=== PATIENT | female | born 1980 | race Caucasian/White ===

== ENCOUNTER 2018-08-11 12:47 | Emergency (ER) | payer BC ==
[2018-08-11 13:36] VITALS: BP 136/85
--- NOTE | 2018-08-11 13:52 | UC ---
UC General HPI - HPI Summary HPI Summary: 2 day hx sore throat, BARBOUR, bodyaches, fatigue and ear discomfort. pt had some flu type symptoms before this but had gotten better for about 3 days. - History of Current Complaint Chief Complaint: UCRespiratory Stated Complaint: ST,FEVER,BILATERAL EAR PAIN Time Seen by Provider: 08/11/18 13:26 Hx Obtained From: Patient Hx Last Menstrual Period: UTERINE ABLATION 4 YRS AGO . DOES NOT HAVE PERIODS Onset/Duration: Gradual Onset Timing: Constant Pain Intensity: 6 Associated Signs & Symptoms: Negative: Diarrhea, Vomiting - Allergy/Home Medications Allergies/Adverse Reactions: Allergies Allergy/AdvReac Type Severity Reaction Status Date / Time MS Procaine [From Novocain] Allergy Severe Difficulty Verified 08/11/18 13:27 Breathing MS Codeine [Codeine] Allergy Intermediate Rash Verified 08/11/18 13:27 Home Medications: Home Medications FLUoxetine CAP* [PROzac CAP*] 40 mg PO DAILY 08/11/18 [History Confirmed ] Ibuprofen TAB* [Advil TAB*] 400 mg PO Q6H PRN 08/11/18 [History Confirmed ] PMH/Surg Hx/FS Hx/Imm Hx Psychological History: Anxiety, Depression - Surgical History Surgical History: Yes Surgery Procedure, Year, and Place: bilat knee surgery/ACL repair. 2 vaginal deliveries. 1 , TUBAL LIGATION, OCTOBER 2013. UTERINE ABLATION - Social History Alcohol Use: None Substance Use Type: None Smoking Status (MU): Never Smoked Tobacco Review of Systems All Other Systems Reviewed And Are Negative: Yes Constitutional: Positive: Fever, Fatigue ENT: Positive: Sore Throat, Ear Ache Musculoskeletal: Positive: Myalgia Neurological: Positive: Headache Physical Exam Triage Information Reviewed: Yes Appearance: Well-Appearing Vital Signs: Initial Vital Signs Temp 98.3 F 08/11/18 13:29 Pulse 101 08/11/18 13:29 Resp 16 08/11/18 13:29 BP 136/85 08/11/18 13:29 Pulse Ox 99 08/11/18 13:29 Vital Signs Reviewed: Yes Eyes: Positive: Conjunctiva Clear ENT: Positive: Pharyngeal erythema, TMs normal, Uvula midline. Negative: Nasal congestion, Nasal drainage, Trismus, Muffled voice, Hoarse voice Neck: Positive: Supple, Enlarged Nodes @ - peritonsilar nodes that are tender. Respiratory: Positive: Lungs clear, Normal breath sounds, No respiratory distress Cardiovascular: Positive: RRR Abdomen Description: Positive: Nontender Bowel Sounds: Positive: Present Musculoskeletal: Positive: ROM Intact Neurological: Positive: Alert Psychological: Positive: Age Appropriate Behavior Skin Exam: Normal Course/Dx - Diagnoses Provider Diagnosis: Strep throat Discharge - Sign-Out/Discharge Documenting (check all that apply): Patient Departure All imaging exams completed and their final reports reviewed: No Studies - Discharge Plan Condition: Stable Disposition: HOME Prescriptions: Amoxicillin PO (*) [Amoxicillin 500 MG CAP*] 500 mg PO Q12H 10 Days #20 cap Patient Education Materials: Strep Throat (DC) Forms: *Work Release Referrals: Andree Beaver [Primary Care Provider] - Additional Instructions: follow up if not better in 5 days or sooner if worse. - Billing Disposition and Condition Condition: STABLE Disposition: Home
== END 2018-08-11 14:06 | disposition home or self-care (01) ==
LOC: UCCORT 12:47
DX: J02.0 Streptococcal pharyngitis (principal); B95.0 Streptococcus, group A, as the cause of diseases classified elsewhere; F41.8 Other specified anxiety disorders
CPT/HCPCS: 87651; 99212; G0463

== ENCOUNTER 2018-09-20 10:06 | Emergency (ER) | payer BC ==
[2018-09-20 10:33] VITALS: BP 134/80
--- NOTE | 2018-09-20 10:43 | UC ---
Throat Pain/Nasal Bobby HPI - HPI Summary HPI Summary: 38 y/o female presents to the urgent care c/o sore throat and subjective fever w / chills for the past 5 days. Pt reports pain w/ swallowing is 5/10 associated w / mild dry cough. She took ibuprofen 400mg PO last night to alleviate symptoms. Pt states she was Dx w/ Strep last months and she thinks she also has it now. Pt denies dizziness, BARBOUR, rash, SOB, chest pain, abdominal pain, N/V/D. - History of Current Complaint Chief Complaint: UCRespiratory Stated Complaint: THROAT COMPLAINT Time Seen by Provider: 09/20/18 10:39 Hx Obtained From: Patient Hx Last Menstrual Period: does not get menses d/t ablation Onset/Duration: Gradual Onset, Lasting Days - 5 days, Still Present Severity: Moderate Pain Intensity: 6 Pain Scale Used: 0-10 Numeric Cough: Nonproductive Associated Signs & Symptoms: Positive: Dysphagia, Fever - subjective fever at home - Epiglottits Risk Factors Epiglottis Risk Factors: Negative - Allergies/Home Medications Allergies/Adverse Reactions: Allergies Allergy/AdvReac Type Severity Reaction Status Date / Time procaine [From Novocain] Allergy Severe Difficulty Verified 09/20/18 10:24 Breathing codeine Allergy Intermediate Rash Verified 09/20/18 10:24 Home Medications: Home Medications Ferrous Sulfate TAB* 1 tab TID 09/20/18 [History Confirmed 09/20/18] PMH/Surg Hx/FS Hx/Imm Hx Previously Healthy: Yes - Pt denies PMHX - Surgical History Surgical History: Yes Surgery Procedure, Year, and Place: bilat knee surgery/ACL repair. 2 vaginal deliveries. 1 , TUBAL LIGATION, OCTOBER 2013. UTERINE ABLATION. LEEP - Family History Known Family History: Positive: Hypertension, Diabetes - Social History Occupation: Employed Full-time Lives: With Family Alcohol Use: None Substance Use Type: None Smoking Status (MU): Never Smoked Tobacco Review of Systems All Other Systems Reviewed And Are Negative: Yes Constitutional: Positive: Fever - subjective at home, Chills, Fatigue Skin: Positive: Negative Eyes: Positive: Negative ENT: Positive: Sore Throat Respiratory: Positive: Cough - dry cough Cardiovascular: Positive: Negative Gastrointestinal: Positive: Negative Genitourinary: Positive: Negative Motor: Positive: Negative Neurovascular: Positive: Negative Musculoskeletal: Positive: Negative Neurological: Positive: Negative Psychological: Positive: Negative Is Patient Immunocompromised?: No Physical Exam - Summary Physical Exam Summary: VITAL SIGNS: Reviewed. GENERAL: Patient is a well developed and nourished female who is sitting comfortable in the examining table. Patient is not in any acute respiratory distress. HEAD AND FACE: No signs of trauma. No ecchymosis, hematomas or skull depressions. No sinus tenderness. EYES: PERRLA, EOMI x 2, No injected conjunctiva, no nystagmus. No photophobia. EARS: Hearing grossly intact. Ear canals and tympanic membranes are within normal limits. MOUTH: Positive pharynx with erythema, exudates, palatal petechiae. B/L tonsillar enlargement with exudate. Uvula in midline. NECK: Supple, trachea is midline, Positive anterior cervical lymphadenopathy, no JVD, no carotid bruit, no c-spine tenderness, neck with full ROM. No meningeal signs, no Kernig's or brudzinskis signs. CHEST: Symmetric, no tenderness at palpation LUNGS: Clear to auscultation bilaterally. No wheezing or crackles. CVS: Regular rate and rhythm, S1 and S2 present, no murmurs or gallops appreciated. ABDOMEN: Soft, non-tender. No signs of distention. No rebound no guarding, and no masses palpated. Bowel sounds are normal. EXTREMITIES: FROM in all major joints, no edema, no cyanosis or clubbing. NEURO: Alert and oriented x 3. No acute neurological deficits. Speech is normal and follows commands. SKIN: Dry and warm Vital Signs: Initial Vital Signs Temp 97.6 F 09/20/18 10:29 Pulse 104 09/20/18 10:29 Resp 16 09/20/18 10:29 BP 134/80 09/20/18 10:29 Pulse Ox 100 09/20/18 10:29 Throat Pain/Nasal Course/Dx - Course Course Of Treatment: 38 y/o female presents to the urgent care c/o sore throat and subjective fever w / chills for the past 5 days. Pt reports pain w/ swallowing is 5/10 associated w / mild dry cough. She took ibuprofen 400mg PO last night to alleviate symptoms. Pt states she was Dx w/ Strep last months and she thinks she also has it now. Pt denies dizziness, BARBOUR, rash, SOB, chest pain, abdominal pain, N/V/D. Hx obtained. Pt w/ pharyngitis on examination. Rapid strep ordered: result: positive. Strep pharyngitis. Rx Amoxicillin PO and Ibuprofen PO for pain and swelling. PT Advised on hand washing to avoid spreading. Also advised to rest, eat well and avoid strenuous exercise. If symptoms do not improve or worsen advised to return to the urgent care or f/u with her PCP in 3 days for further evaluation and treatment. PT understood and agreed - Differential Dx/Diagnosis Differential Diagnosis/HQI/PQRI: Laryngitis, Mononucleosis, Pharyngitis, Tonsillitis, URI Provider Diagnosis: Strep pharyngitis Discharge - Sign-Out/Discharge Documenting (check all that apply): Patient Departure - D/C home All imaging exams completed and their final reports reviewed: No Studies - Discharge Plan Condition: Stable Disposition: HOME Prescriptions: Amoxicillin PO (*) [Amoxicillin 500 MG CAP*] 500 mg PO Q12H #20 cap Patient Education Materials: Strep Throat (ED) Referrals: Andree Beaver [Primary Care Provider] - 3 Days Additional Instructions: 1- Please take the full course of the antibiotic to avoid resistance. 2-Please take ibuprofen PO 600mg q6-8hrs prn as instructed after meals to alleviate pain and swelling. Increase fluid intake, eat well, rest and avoid strenuous exercise. Encourage hand washing to avoid spread 3-If symptoms do not improve or worsen please return to the urgent care or f/u with your PCP 3 days for further evaluation and treatment. - Billing Disposition and Condition Condition: STABLE Disposition: Home - Attestation Statements Provider Attestation: I was available for consult. This patient was seen by the ZARI. The patient was not presented to , seen by or examined by fl -Lynnette Khan MD
== END 2018-09-20 11:15 | disposition home or self-care (01) ==
LOC: UCCORT 10:06
DX: J02.0 Streptococcal pharyngitis (principal); B95.0 Streptococcus, group A, as the cause of diseases classified elsewhere; Z88.5 Allergy status to narcotic agent; Z88.4 Allergy status to anesthetic agent
CPT/HCPCS: 87651; 99212; G0463

== ENCOUNTER 2018-10-25 13:05 | Emergency (ER) | payer BC ==
--- NOTE | 2018-10-25 13:20 | UC ---
Complaint Female HPI - HPI Summary HPI Summary: 38-year-old female with a sore throat, some burning on urination and left earache. She has a child at home with strep pharyngitis. This patient has had strep throat 2 times in the past 3 months herself. She denies any abnormal vaginal discharge. - History Of Current Complaint Stated Complaint: FEVER,LT EAR COMPLAINT,URINARY COMPLAINT Time Seen by Provider: 10/25/18 13:08 Hx Obtained From: Patient Hx Last Menstrual Period: does not get menses d/t ablation ?: No Onset/Duration: Gradual Onset Timing: Constant Severity Initially: Mild Severity Currently: Mild Character: Burning - Mild burning on urination. Aggravating Factor(s): Urination Alleviating Factor(s): Nothing Associated Signs And Symptoms: Positive: Negative - Allergies/Home Medications Allergies/Adverse Reactions: Allergies Allergy/AdvReac Type Severity Reaction Status Date / Time procaine [From Novocain] Allergy Severe Difficulty Verified 10/25/18 13:13 Breathing codeine Allergy Intermediate Rash Verified 10/25/18 13:13 Home Medications: Home Medications QUEtiapine XR TAB* [Seroquel Xr 50 MG TAB*] 25 mg PO BEDTIME 10/25/18 [History Confirmed 10/25/18] hydrOXYzine HCL TAB* [Atarax 10 MG TAB*] 10 mg PO QID PRN 10/25/18 [History Confirmed 10/25/18] PMH/Surg Hx/FS Hx/Imm Hx Previously Healthy: Yes Respiratory History: Asthma - Surgical History Surgical History: Yes Surgery Procedure, Year, and Place: bilat knee surgery/ACL repair. 2 vaginal deliveries. 1 , TUBAL LIGATION, OCTOBER 2013. UTERINE ABLATION. LEEP - Family History Known Family History: Positive: Hypertension, Diabetes - Social History Alcohol Use: None Substance Use Type: None Smoking Status (MU): Never Smoked Tobacco Review of Systems All Other Systems Reviewed And Are Negative: Yes ENT: Positive: Sore Throat, Ear Ache Genitourinary: Positive: Dysuria - Mild burning on urination.. Negative: Vaginal/Penile Burning, Vaginal/Penile Itching, Vaginal/Penile Discharge, Vaginal/Penile Pain, Vaginal/Penile Tenderness Is Patient Immunocompromised?: No Physical Exam Triage Information Reviewed: Yes Appearance: Well-Appearing, No Pain Distress, Well-Nourished Vital Signs Reviewed: Yes Eyes: Positive: Conjunctiva Clear ENT: Positive: Pharyngeal erythema, TM red - Left tympanic membrane mildly injected but with good landmarks and light reflex, right tympanic primary pearly -terrazas with good land broussard and light reflex. Mild tonsillar swelling with erythema, no exudate., Uvula midline. Negative: Tonsillar exudate, Trismus, Muffled voice, Hoarse voice Neck: Positive: Supple, Nontender, No Lymphadenopathy Respiratory: Positive: Lungs clear, Normal breath sounds, No respiratory distress, No accessory muscle use Cardiovascular: Positive: No Murmur, Pulses Normal, Brisk Capillary Refill, Tachycardia Abdomen Description: Positive: Nontender, No Organomegaly, Soft Bowel Sounds: Positive: Present Musculoskeletal Exam: Normal Neurological Exam: Normal Psychological Exam: Normal Skin Exam: Normal Complaint Female Dx - Course Course Of Treatment: Urinalysis was negative for leukocytes did have a trace of blood, rapid strep test was positive. - Differential Dx/Diagnosis Provider Diagnosis: Strep pharyngitis Discharge - Sign-Out/Discharge Documenting (check all that apply): Patient Departure All imaging exams completed and their final reports reviewed: No Studies - Discharge Plan Condition: Fair Disposition: HOME Prescriptions: Azithromyxin KASH (NF) [Z-Kash (Zithromax) 250 mg tabs #6] 2 tab PO .TODAY, THEN 1 DAILY #6 tab Patient Education Materials: Strep Throat (DC) Referrals: Andree Beaver [Primary Care Provider] - Additional Instructions: Increase fluids, rest, Tylenol every 4 hours and Motrin every 8 hours for fever. Change her toothbrush in 24 hours. Follow-up with your primary care provider if no improvement in 3 or 4 days. - Billing Disposition and Condition Condition: FAIR Disposition: Home - Attestation Statements Provider Attestation: I was available for consult. This patient was seen by the ZARI. The patient was not presented to , seen by or examined by ma -Lynnette Khan MD
[2018-10-25 13:21] VITALS: BP 135/88
== END 2018-10-25 13:36 | disposition home or self-care (01) ==
LOC: UCCORT 13:05
DX: J02.0 Streptococcal pharyngitis (principal); B95.0 Streptococcus, group A, as the cause of diseases classified elsewhere; Z88.5 Allergy status to narcotic agent; Z20.828 Contact with and (suspected) exposure to other viral communicable diseases
CPT/HCPCS: 81003; 87651; 99212; G0463

== ENCOUNTER 2019-02-12 16:52 | Emergency (ER) | payer BC ==
--- OUTSIDE RECORDS SUMMARY | 2019-02-12 17:14 | XMS REPORT | Continuity of Care Document ---
:1980 External Reference #:[id number] Author Name Angy Daigle NP (transmitted by agent of provider Rafaela Gray) Address [address] [place] [address] Care Team Providers Name Role Phone Andree Beaver FNP - Nurse Care Team Information Investment Counselor Practitioner Problems Description No Information Available Social History Type Date Description Comments Sex Unknown Tobacco Use Start: Unknown Never Smoked Cigarettes ETOH Use Rare Use Of Alcohol Recreational Drug Use Never Used Drugs Allergies, Adverse Reactions, Alerts Active Allergies Reaction Severity Comments Date Novocain Allergic asthma Severe 01/16/2016 Codeine Hives Moderate 01/28/2019 Medications Active Medications SIG Qnty Indications Ordering Provider Date Metoprolol Succinate 1 by mouth every Unknown ER day 25mg Tablets ER 24HR Hydroxyzine HCL three times a day Unknown 25mg as needed Tablets Immunizations Description No Information Available Vital Signs Date Vital Result Comment 01/28/2019 2:26pm Weight 173.00 lb Height 64.5 inches 5'4.50" BMI (Body Mass Index) 29.2 kg/m2 BP Systolic 153 mmHg BP Diastolic 101 mmHg Heart Rate 86 /min O2 % BldC Oximetry 96 % Body Temperature 97.7 F Pain Level 0 01/16/2016 4:09pm Weight 172.25 lb Height 66 inches 5'6" BMI (Body Mass Index) 27.8 kg/m2 Heart Rate 56 /min O2 % BldC Oximetry 99 % Body Temperature 98.2 F Results Description No Information Available Procedures Description No Information Available Medical Devices Description No Information Available Encounters Description No Information Available Assessments Description No Information Available Plan of Treatment No Information Available Functional Status Description No Information Available Mental Status Description No Information Available Referrals Description No Information Available
--- OUTSIDE RECORDS SUMMARY | 2019-02-12 17:14 | XMS REPORT | Continuity of Care Document ---
:1980 External Reference #:[id number] Author Name Angy Daigle NP Address [address] [place] [address] Care Team Providers Name Role Phone Andree Beaver FNP - Nurse Care Team Information Computer Operations Supervisor Practitioner Problems Active Problems Provider Date Streptococcal sore throat Angy Daigle NP Onset: 01/28/2019 Social History Type Date Description Comments Sex [...] Medical Devices Description No Information Available Encounters Type Date Location Provider Dx Diagnosis Office Visit 01/28/2019 Main Office Angy Daigle J02.0 Streptococcal 2:15p [facility] pharyngitis Assessments Date Code Description Provider 01/28/2019 J02.0 Streptococcal pharyngitis Angy Daigle NP Plan of Treatment No Information Available Functional Status Description No Information Available Mental Status Description No Information Available Referrals Description No Information Available
--- NOTE | 2019-02-12 17:38 | UC ---
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 States it is so sore she can not sit on it. Noticed it 2 days ago. " -had a similar one just above it that resolved spontaneously with draining +painful -no fever/chills. -feels warms. no dc. - History of Current Complaint Chief Complaint: UCSkin Time Seen by Provider: 02/12/19 17:20 Stated Complaint: INFECTED BUG BITE NEAR BOTTOX Hx Last Menstrual Period: unknown Pain Intensity: 6 - Allergy/Home Medications Allergies/Adverse Reactions: Allergies Allergy/AdvReac Type Severity Reaction Status Date / Time procaine [From Novocain] Allergy Severe Difficulty Verified 02/12/19 17:24 Breathing codeine Allergy Intermediate Rash Verified 02/12/19 17:24 Home Medications: Home Medications Metoprolol Succinate 25 mg PO DAILY 02/12/19 [History Confirmed 02/12/19] PMH/Surg Hx/FS Hx/Imm Hx Previously Healthy: Yes Cardiovascular History: Hypertension - Surgical History Surgical History: Yes Surgery Procedure, Year, and Place: bilat knee surgery/ACL repair. 2 vaginal deliveries. 1 , TUBAL LIGATION, OCTOBER 2013. UTERINE ABLATION. LEEP - Family History Known Family History: Positive: Hypertension, Diabetes - Social History Alcohol Use: Occasionally Substance Use Type: None Smoking Status (MU): Never Smoked Tobacco Review of Systems All Other Systems Reviewed And Are Negative: Yes Constitutional: Positive: Negative Skin: Positive: Other Eyes: Positive: Negative ENT: Positive: Negative Respiratory: Positive: Negative Cardiovascular: Positive: Negative Gastrointestinal: Positive: Negative Genitourinary: Positive: Negative Motor: Positive: Negative Neurovascular: Positive: Negative Musculoskeletal: Positive: Negative Neurological: Positive: Negative Psychological: Positive: Negative Is Patient Immunocompromised?: No Physical Exam Triage Information Reviewed: Yes Appearance: Well-Appearing, No Pain Distress, Well-Nourished - very pleasant Vital Signs: Initial Vital Signs Temp 98.7 F 02/12/19 17:19 Pulse 87 02/12/19 17:19 Resp 18 02/12/19 17:19 BP 153/99 02/12/19 17:19 Pulse Ox 100 02/12/19 17:19 Vital Signs Reviewed: Yes Eye Exam: Normal ENT Exam: Normal Respiratory Exam: Normal Cardiovascular Exam: Normal Cardiovascular: Positive: RRR, No Murmur, Brisk Capillary Refill Musculoskeletal Exam: Normal Neurological Exam: Normal Psychological Exam: Normal Skin: Positive: Other - left buttock with small marble sized SC nodule w/ small pore with scant purulent dc. tender. surrounding baseball sized erythema. no fluctuant. no streaks Course/Dx - Course Course Of Treatment: -Elev BP - started on BP med 3 wks ago and she has a f/u appt on 02/15 for it. Asx. but could be higher today bc she is in pain. -left bottock boil w/o DM. treat w/ bactrim. denies sulfa allergy. cover w/ bacitracin and bandage. to ER or UC for I&D if worsens or f/c/rigors. - Differential Diagnoses - Skin Complaint Differential Diagnoses: Abscess, Cellulitis, Contact Dermatitis - Diagnoses Provider Diagnosis: Boil of buttock, Hypertension Discharge ED - Sign-Out/Discharge Documenting (check all that apply): Patient Departure All imaging exams completed and their final reports reviewed: No Studies - Discharge Plan Condition: Stable Disposition: HOME Prescriptions: Sulfamethox/Trimethoprim DS* [Bactrim DS 800/160 TAB*] 1 tab PO BID #28 tab Patient Education Materials: Furunculosis and Carbunculosis (ED) Referrals: Andree Beaver [Primary Care Provider] - Additional Instructions: -Take the bactrim 2x/day x 14 days -Apply topical bacitracin (do not use neosporin) and cover with a bandage. -Go to the ER or urgent care if you develop fever/chills/shaking chills or it looks bigger. -It is recommended that you take a probiotic daily while you are on antibiotics. A few common brands that you can buy over the counter are colon health, align and florastor. These can help prevent a colon infection called c diff that can be associated with antibiotic use. -Your blood pressure continues to be high today and part of it may be due to pain, however, I supsect that the metoprolol may not be sufficient. I would recommend adding or changing to another more effective class of medications such as KWADWO inhibit, but only if assuring that you will not become bc that is a contraindication. Avoid high salt diets and medications called NSAIDs such as advil, aleve, ibuprofen etc. - Billing Disposition and Condition Condition: STABLE Disposition: Home
[2019-02-12 17:42] VITALS: BP 149/101
== END 2019-02-12 17:59 | disposition home or self-care (01) ==
LOC: UCCORT 16:52
DX: S30.860A Insect bite (nonvenomous) of lower back and pelvis, initial encounter (principal); I10 Essential (primary) hypertension; Z88.4 Allergy status to anesthetic agent; Z88.5 Allergy status to narcotic agent; Z79.899 Other long term (current) drug therapy; W57.XXXA Bitten or stung by nonvenomous insect and other nonvenomous arthropods, initial encounter; Y92.9 Unspecified place or not applicable
CPT/HCPCS: 99212; G0463

== ENCOUNTER 2019-05-31 15:20 | Emergency (ER) | payer BC ==
[2019-05-31 16:25] VITALS: BP 141/92
[2019-05-31 16:43] LABS: Influenza A Molecular NEGATIVE (Negative); Influenza B Molecular NEGATIVE (Negative)
--- NOTE | 2019-06-19 12:51 | UC ---
FLU HPI - HPI Summary HPI Summary: Ill with flu-like sympytoms. Daughter with the flu a few days ago. Pt just had a tonsilectomy a few days ago - History of Current Complaint Chief Complaint: UCGeneralIllness Stated Complaint: COUGH, CONGESITON, BODY ACHES Time Seen by Provider: 05/31/19 16:11 Hx Obtained From: Patient Hx Last Menstrual Period: n/a due to ablation ?: No Onset/Duration: Gradual Onset Severity Currently: Mild Severity Initially: Mild Pain Intensity: 0 Pain Scale Used: 0-10 Numeric Associated Signs & Symptoms: Positive: Sore Throat Related Hx: Possible Flu/Infectious Exposure - Allergy/Home Medications Allergies/Adverse Reactions: Allergies Allergy/AdvReac Type Severity Reaction Status Date / Time procaine [From Novocain] Allergy Severe Difficulty Verified 05/31/19 16:19 Breathing codeine Allergy Intermediate Rash Verified 05/31/19 16:19 PMH/Surg Hx/FS Hx/Imm Hx Previously Healthy: Yes - Surgical History Surgical History: Yes Surgery Procedure, Year, and Place: bilat knee surgery/ACL repair. 1 , TUBAL LIGATION, OCTOBER 2013. UTERINE ABLATION. LEEP. tonsillectomy May 2019 - Family History Known Family History: Positive: Hypertension, Diabetes - Social History Alcohol Use: Occasionally Substance Use Type: None Smoking Status (MU): Never Smoked Tobacco Review of Systems All Other Systems Reviewed And Are Negative: Yes Constitutional: Positive: Chills ENT: Positive: Sore Throat - Due to tonsillectomy., Nasal Discharge Musculoskeletal: Positive: Myalgia Is Patient Immunocompromised?: No Physical Exam Triage Information Reviewed: Yes Appearance: Well-Appearing, No Pain Distress, Well-Nourished Vital Signs: Initial Vital Signs Temp 98.8 F 05/31/19 16:19 Pulse 92 05/31/19 16:19 Resp 16 05/31/19 16:19 BP 141/92 05/31/19 16:19 Pulse Ox 98 05/31/19 16:19 Vital Signs Reviewed: Yes Eyes: Positive: Conjunctiva Clear ENT: Positive: Pharyngeal erythema - Tonsillar exudate (recent tonsillectomy), TMs normal, Uvula midline Neck: Positive: Supple, Nontender, No Lymphadenopathy Respiratory: Positive: Lungs clear, Normal breath sounds, No respiratory distress, No accessory muscle use Cardiovascular: Positive: RRR, No Murmur, Pulses Normal, Brisk Capillary Refill Musculoskeletal Exam: Normal Neurological Exam: Normal Psychological Exam: Normal Skin Exam: Normal Flu Course/Dx - Course Course Of Treatment: Rapid flu: negative Rapid strep: negative Pt comfortable here - Differential Dx/Diagnosis Provider Diagnosis: Pharyngitis, URI (upper respiratory infection) Discharge ED - Sign-Out/Discharge Documenting (check all that apply): Patient Departure All imaging exams completed and their final reports reviewed: No Studies - Discharge Plan Condition: Fair Disposition: HOME Prescriptions: Benzonatate CAP* [Tessalon 100 MG CAP*] 100 mg PO TID PRN #21 cap PRN Reason: Cough Patient Education Materials: Pharyngitis (ED) Referrals: Nya Lance PA [Primary Care Provider] - Additional Instructions: Increase fluids, follow-up with your primary care provider if no improvement in 4 or 5 days. - Billing Disposition and Condition Condition: FAIR Disposition: Home
== END 2019-05-31 17:19 | disposition home or self-care (01) ==
LOC: UCCORT 15:20
DX: J06.9 Acute upper respiratory infection, unspecified (principal); J02.9 Acute pharyngitis, unspecified; Z88.7 Allergy status to serum and vaccine; Z88.5 Allergy status to narcotic agent; Z90.89 Acquired absence of other organs
CPT/HCPCS: 87651; 99212; G0463